=== PATIENT | female | born 1990 | race African-American/Black ===

== ENCOUNTER → 2019-12-18 16:31 | Outpatient (CLI) | payer OTHER, SELFPAY | PROVIDERS: Family Provider Obstetrics & Gynecology; PCP Obstetrics & Gynecology; Visit Provider Obstetrics & Gynecology | DX: N89.8 Other specified noninflammatory disorders of vagina (principal); R39.89 Other symptoms and signs involving the genitourinary system | CPT/HCPCS: 87480; 87510; 87660 ==

== ENCOUNTER → 2020-01-01 15:17 | Outpatient (CLI) | payer OTHER, SELFPAY ==
[2020-01-01 21:05] LABS: Urine N gonorrhoeae NOT DETECTED
[2020-01-01 21:13] LABS: Urine Chlamydia NOT DETECTED
== END ==
PROVIDERS: Family Provider Obstetrics & Gynecology; PCP Obstetrics & Gynecology; Visit Provider Obstetrics & Gynecology
DX: Z34.81 Encounter for supervision of other normal pregnancy, first trimester (principal); Z11.3 Encounter for screening for infections with a predominantly sexual mode of transmission; Z3A.11 11 weeks gestation of pregnancy
CPT/HCPCS: 87491; 87591

== ENCOUNTER → 2020-01-08 09:20 | Outpatient (CLI) | payer OTHER, SELFPAY ==
[2020-01-08 10:30] LABS: Add Manual Diff / Slide Review NO; Basophils Absolute Auto 0 /uL (0-100); Basophils Percent Auto 0.5 % (0-2); Eosinophils Absolute Auto 100 /uL (0-450); Eosinophils Percent Auto 0.9 % (2-4); Hematocrit 39.9 % (36-46); Hemoglobin 14.1 g/dL (12.0-16.0); Lymphocytes Absolute Auto 2100 /uL (1100-4500); Lymphocytes Percent Auto 28.8 % (25-40); Mean Corpuscular HGB Conc 35.5 % (30-36); Mean Corpuscular Hemoglobin 32.6 PG (26-34); Mean Corpuscular Volume 91.9 fL (80-100); Monocytes Absolute Auto 500 /uL (0-900); Monocytes Percent Auto 6.5 % (3-14); Neutrophils Absolute Auto 4700 /uL (1500-7000); Neutrophils Percent Auto 63.3 % (50-75); Platelet Count 217 X10^3/uL (150-400); Red Blood Cell Count 4.34 X10^6/uL (4.0-5.2); Red Cell Distribution Width 13.2 % (11.6-14.8); White Blood Cell Count 7.5 X10^3/uL (4.5-11.0)
[2020-01-08 13:02] LABS: Appearance Urine UA CLEAR; Bilirubin Urine UA NEGATIVE (NEGATIVE); Color Urine UA YELLOW; Glucose Urine UA NEGATIVE (Negative); Ketones Urine UA NEGATIVE (NEGATIVE); Leukocyte Esterase Urine UA NEGATIVE (NEGATIVE); Nitrite Urine UA NEGATIVE (Negative); Occult Blood Urine UA NEGATIVE (Negative); Protein Urine UA NEGATIVE (Negative); Urobilinogen Urine UA 0.2 E.U./dL (0.2)
[2020-01-08 15:42] LABS: Hepatitis B Surface Antigen NEGATIVE s/c (NEGATIVE)
[2020-01-08 15:51] LABS: HIV 1 & 2 Ab/Ag 4th Gen Combo NEGATIVE (NEGATIVE); Hep C Virus Ab w/Reflex Quant NEGATIVE s/c (NEGATIVE)
== END ==
PROVIDERS: Family Provider Obstetrics & Gynecology; PCP Obstetrics & Gynecology; Referring Provider Obstetrics & Gynecology; Visit Provider Obstetrics & Gynecology
DX: Z34.81 Encounter for supervision of other normal pregnancy, first trimester (principal)
CPT/HCPCS: 36415; 80055; 81003; 86787; 86803; 86850; 86900; 86901; 87086; 87389

== ENCOUNTER → 2020-02-26 09:37 | Outpatient (CLI) | payer OTHER, SELFPAY ==
--- NOTE | 2020-02-26 09:38 | DI.US.S_ITS ---
PROCEDURE: US OB >= 14 WEEKS FETUS INDICATIONS: ANATOMY OUTSIDE/PRIOR DATING DATA: Last menstrual period (LMP): Unknown. LMP-based estimated date of delivery (ALIVIA): Not applicable. First dating scan (date and location): 12/04/19. Estimated date of delivery (ALIVIA) from first dating scan: 07/16/20. TECHNIQUE: Real-time scanning was performed of the fetus, with image documentation and biometric measurements. Endovaginal scanning: Not performed [facility] >= 14 WEEKS FETUS, 12/04/2019, 10:21. FINDINGS: General: A single living intrauterine gestation is present. Presentation: Variable. Placenta: Placental position is anterior, without previa. Amniotic fluid index: 20 cm, normal range is 5-24 cm. heart rate: 158 beats per minute. Maternal cervical canal: 5.2 cm long. Normal lower limit is 2.5 cm. There is a 2.4 x 1.2 x 4.8 cm fluid collection noted posterior to the inferior aspect of placenta. biometrics: Biparietal diameter: 4.9 cm, correlating with 20 weeks and 5 days Head circumference: 18.7 cm, correlating with 21 weeks and 0 days Abdominal circumference: 15.7 cm, correlating with 20 weeks and 6 days Femur length: 3.4 cm, correlating with 20 weeks and 4 days Estimated gestational age from initial scan: not applicable. Composite gestational age from present scan: 20 weeks and 6 days Estimated weight and percentile: 377 g, correlating with the 91st percentile Measurement variability for biometric dating: +/- 7 days from 14 weeks to 15 weeks 6 days gestation, +/- 10 days from 16 weeks to 21 weeks 6 days gestation, +/- 2 weeks from 22 weeks to 27 weeks 6 days gestation, +/- 3 weeks for 28 weeks gestation or later. weight reference: 4500 g or EFW >90/95% is considered macrosomia or large for gestational age. EFW <10% is small for gestational age. EFW 5% or less is considered intra-uterine growth restriction. Anatomic survey: Neuro: Ventricles are non-dilated at less than 10 mm. Cisterna magna is normal at 3-11 mm. Cerebellum is normal in size and morphology. Nuchal skin fold: Normal at less than 6 mm between 14-21 weeks gestational age. Face: Nose and lips, facial profile are normal. Spine: No evidence for spina bifida. Heart: 4-chambered heart is present, with normal ventricular outflow tracts. Diaphragm: Diaphragm is intact. Stomach: Left-sided stomach is present. Kidneys: No hydronephrosis. Normal is less than 5 mm in 2nd trimester, less than 7 mm in 3rd trimester. Cord: 3-vessel cord has orthotopic insertion. Bladder: Normal in size. Extremities: All 4 extremities identified. IMPRESSION: 1. Single living intrauterine gestation with an estimated sonographic gestational age of approximately 20 weeks and 6 days. 2. Unremarkable second trimester anatomic screening survey. 3. There is a 2.4 x 1.2 x 4.8 cm fluid collection noted posterior to the inferior placenta possibly representing a subchorionic hemorrhage. Dictated by: Joe Garcia M.D. on 02/26/2020 at 12:15 Approved by: Joe Garcia M.D. on 02/26/2020 at 13:12
== END ==
PROVIDERS: Family Provider Obstetrics & Gynecology; PCP Obstetrics & Gynecology; Referring Provider Obstetrics & Gynecology; Visit Provider Obstetrics & Gynecology
DX: Z34.82 Encounter for supervision of other normal pregnancy, second trimester (principal); Z3A.20 20 weeks gestation of pregnancy
CPT/HCPCS: 76811

== ENCOUNTER → 2020-03-13 16:08 | Outpatient (CLI) | payer OTHER, SELFPAY ==
[2020-03-15 16:41] LABS: Candida species Positive (Negative); Gardnerella vaginalis Negative (Negative); Trichomoas vaginalis Negative (Negative)
== END ==
PROVIDERS: Family Provider Obstetrics & Gynecology; PCP Obstetrics & Gynecology; Visit Provider Obstetrics & Gynecology
DX: O26.899 Other specified pregnancy related conditions, unspecified trimester (principal); N89.8 Other specified noninflammatory disorders of vagina; O23.599 Infection of other part of genital tract in pregnancy, unspecified trimester; B96.89 Other specified bacterial agents as the cause of diseases classified elsewhere; Z3A.22 22 weeks gestation of pregnancy
CPT/HCPCS: 87480; 87510; 87660

== ENCOUNTER → 2020-04-08 12:22 | Outpatient (CLI) | payer OTHER, SELFPAY ==
[2020-04-08 13:25] LABS: Add Manual Diff / Slide Review NO; Basophils Absolute Auto 0 /uL (0-100); Basophils Percent Auto 0.2 % (0-2); Eosinophils Absolute Auto 100 /uL (0-450); Eosinophils Percent Auto 0.5 % (2-4); Hematocrit 38.6 % (36-46); Hemoglobin 13.4 g/dL (12.0-16.0); Lymphocytes Absolute Auto 2700 /uL (1100-4500); Lymphocytes Percent Auto 22.1 % (25-40); Mean Corpuscular HGB Conc 34.8 % (30-36); Mean Corpuscular Hemoglobin 32.5 PG (26-34); Mean Corpuscular Volume 93.3 fL (80-100); Monocytes Absolute Auto 800 /uL (0-900); Monocytes Percent Auto 6.6 % (3-14); Neutrophils Absolute Auto 8600 /uL (1500-7000); Neutrophils Percent Auto 70.6 % (50-75); Platelet Count 233 X10^3/uL (150-400); Red Blood Cell Count 4.14 X10^6/uL (4.0-5.2); Red Cell Distribution Width 13.1 % (11.6-14.8); White Blood Cell Count 12.2 X10^3/uL (4.5-11.0)
[2020-04-08 13:55] LABS: Aspartate Aminotransferase 23 IU/L (14-36); Blood Urea Nitrogen 4 mg/dL (7-17); Estimated Glomerular Filt Rate > 60.0 mL/min (>60); Uric Acid 2.8 mg/dL (2.5-6.2)
[2020-04-08 15:17] LABS: Creatinine Urine Random 39.2 mg/dL; Protein (Total) Urine Random 11 mg/dL (0-12); Protein Creatinine Ratio Urine 0.28 GRAM/24H
== END ==
PROVIDERS: Family Provider Obstetrics & Gynecology; PCP Obstetrics & Gynecology; Referring Provider Obstetrics & Gynecology; Visit Provider Obstetrics & Gynecology
DX: O16.9 Unspecified maternal hypertension, unspecified trimester (principal)
CPT/HCPCS: 36415; 82570; 84156; 84450; 84550; 85025

== ENCOUNTER → 2020-04-20 08:01 | Outpatient (CLI) | payer OTHER, SELFPAY ==
[2020-04-20 10:05] LABS: Hematocrit 37.1 % (36-46); Hemoglobin 13.2 g/dL (12.0-16.0)
[2020-04-20 10:28] LABS: GTT (PREG) 1 Hour PP 50gm Dose 166 mg/dL (76-139)
== END ==
PROVIDERS: Family Provider Obstetrics & Gynecology; PCP Obstetrics & Gynecology; Referring Provider Obstetrics & Gynecology; Visit Provider Obstetrics & Gynecology
DX: Z34.82 Encounter for supervision of other normal pregnancy, second trimester (principal); Z3A.24 24 weeks gestation of pregnancy
CPT/HCPCS: 36415; 82950; 85014; 85018

== ENCOUNTER → 2020-05-06 07:13 | Outpatient (CLI) | payer OTHER, SELFPAY ==
[2020-05-06 10:48] LABS: Glucose 1 Hour 190 mg/dL (70-170)
[2020-05-06 10:56] LABS: Glucose 2 Hour 173 mg/dL (70-140)
[2020-05-06 12:17] LABS: Glucose Tol Interpretation INTERPRETATION
[2020-05-06 12:30] LABS: Glucose 3 Hour 96 mg/dL (70-115)
== END ==
PROVIDERS: Family Provider Obstetrics & Gynecology; PCP Obstetrics & Gynecology; Referring Provider Obstetrics & Gynecology; Visit Provider Obstetrics & Gynecology
DX: O99.810 Abnormal glucose complicating pregnancy (principal); Z3A.29 29 weeks gestation of pregnancy
CPT/HCPCS: 82951; 82952

== ENCOUNTER → 2020-05-24 15:16 | Outpatient (CLI) | payer OTHER, SELFPAY ==
[2020-05-24 16:46] LABS: Add Manual Diff / Slide Review NO; Basophils Absolute Auto 0 /uL (0-100); Basophils Percent Auto 0.4 % (0-2); Eosinophils Absolute Auto 100 /uL (0-450); Eosinophils Percent Auto 0.5 % (2-4); Hematocrit 38.7 % (36-46); Hemoglobin 13.4 g/dL (12.0-16.0); Lymphocytes Absolute Auto 2700 /uL (1100-4500); Lymphocytes Percent Auto 23.2 % (25-40); Mean Corpuscular HGB Conc 34.6 % (30-36); Mean Corpuscular Volume 92.5 fL (80-100); Monocytes Absolute Auto 800 /uL (0-900); Monocytes Percent Auto 6.7 % (3-14); Neutrophils Absolute Auto 7900 /uL (1500-7000); Neutrophils Percent Auto 69.2 % (50-75); Platelet Count 213 X10^3/uL (150-400); Red Blood Cell Count 4.18 X10^6/uL (4.0-5.2); Red Cell Distribution Width 13.4 % (11.6-14.8); White Blood Cell Count 11.5 X10^3/uL (4.5-11.0)
[2020-05-24 17:20] LABS: Aspartate Aminotransferase 24 IU/L (14-36); BUN Creatinine Ratio 16.9 (6-22); Blood Urea Nitrogen 10 mg/dL (7-17); Estimated Glomerular Filt Rate > 60.0 mL/min (>60)
[2020-05-24 17:37] LABS: Creatinine Urine Random 244.1 mg/dL; Protein (Total) Urine Random 11 mg/dL (0-12); Protein Creatinine Ratio Urine 0.04 GRAM/24H
== END ==
PROVIDERS: Family Provider Obstetrics & Gynecology; PCP Obstetrics & Gynecology; Referring Provider Obstetrics & Gynecology; Visit Provider Obstetrics & Gynecology
DX: O16.9 Unspecified maternal hypertension, unspecified trimester (principal)
CPT/HCPCS: 36415; 82570; 84156; 84450; 84550; 85025

== ENCOUNTER → 2020-06-03 12:03 | Outpatient (CLI) | payer OTHER, SELFPAY ==
--- NOTE | 2020-06-03 12:04 | DI.US.S_ITS ---
PROCEDURE: US OB >= 14 WEEKS FETUS INDICATIONS: GROWTH FOR DIABETES OUTSIDE/PRIOR DATING DATA: Last menstrual period (LMP): Unknown. LMP-based estimated date of delivery (ALIVIA): Unknown . First dating scan (date and location): 12/04/19 . Estimated date of delivery (ALIVIA) from first dating scan: 07/16/20 . TECHNIQUE: Real-time scanning was performed of the fetus, with image documentation and biometric measurements. Endovaginal scanning: Not performed COMPARISON: [facility], , OB >= 14 WEEKS FETUS, 04/22/2020, 14:57. FINDINGS: General: A single living intrauterine gestation is present. Presentation: Vertex. Placenta: Placental position is anterior , without previa. Amniotic fluid index: 11.0 cm, normal range is 5-24 cm. heart rate: 158 beats per minute. Maternal cervical canal: 6.0 cm long. Normal lower limit is 2.5 cm. biometrics: Biparietal diameter: 9.2 cm, 37 weeks 3 days Head circumference: 33.2 cm, 37 weeks 6 days Abdominal circumference: 30.9 cm, 34 weeks 6 days Femur length: 6.9 cm, 35 weeks 5 days Estimated gestational age from initial scan: 33 weeks, 6 days. Composite gestational age from present scan: 36 weeks, 3 days Estimated weight and percentile: 90th percentile, 405 g Measurement variability for biometric dating: +/- 7 days from 14 weeks to 15 weeks 6 days gestation, +/- 10 days from 16 weeks to 21 weeks 6 days gestation, +/- 2 weeks from 22 weeks to 27 weeks 6 days gestation, +/- 3 weeks for 28 weeks gestation or later. weight reference: 4500 g or EFW >90/95% is considered macrosomia or large for gestational age. EFW <10% is small for gestational age. EFW 5% or less is considered intra-uterine growth restriction. Anatomic survey: Neuro: Ventricles are non-dilated at less than 10 mm. Cisterna magna is normal at 3-11 mm. Cerebellum is normal in size and morphology. Nuchal skin fold: Normal at less than 6 mm between 14-21 weeks gestational age. Face: Nose and lips, facial profile are normal. Spine: No evidence for spina bifida. Heart: 4-chambered heart is present, with normal ventricular outflow tracts. Diaphragm: Diaphragm is intact. Stomach: Left-sided stomach is present. Kidneys: No hydronephrosis. Normal is less than 5 mm in 2nd trimester, less than 7 mm in 3rd trimester. Cord: 3-vessel cord has orthotopic insertion. Bladder: Normal in size. Extremities: All 4 extremities identified. IMPRESSION: Single living intrauterine fetus in vertex presentation demonstrating borderline greater than expected growth at the 90th percentile. If there is clinical suspicion of early macrosomia, repeat ultrasound in 3 weeks could be performed. Normal anatomic survey Dictated by: Guero Ruvalcaba M.D. on 06/03/2020 at 14:48 Approved by: Guero Ruvalcaba M.D. on 06/03/2020 at 14:53
== END ==
PROVIDERS: Family Provider Obstetrics & Gynecology; PCP Obstetrics & Gynecology; Referring Provider Obstetrics & Gynecology; Visit Provider Obstetrics & Gynecology
DX: Z36.89 Encounter for other specified antenatal screening (principal); Z3A.36 36 weeks gestation of pregnancy
CPT/HCPCS: 76811

== ENCOUNTER 2020-06-03 14:15 | Outpatient (CLI) | payer OTHER, SELFPAY ==
[2020-06-03 14:59] LABS: Add Manual Diff / Slide Review NO; Basophils Absolute Auto 0 /uL (0-100); Basophils Percent Auto 0.4 % (0-2); Eosinophils Absolute Auto 100 /uL (0-450); Eosinophils Percent Auto 0.5 % (2-4); Hemoglobin 12.7 g/dL (12.0-16.0); Lymphocytes Absolute Auto 2200 /uL (1100-4500); Lymphocytes Percent Auto 20.2 % (25-40); Mean Corpuscular HGB Conc 34.4 % (30-36); Mean Corpuscular Hemoglobin 31.9 PG (26-34); Mean Corpuscular Volume 92.6 fL (80-100); Monocytes Absolute Auto 700 /uL (0-900); Monocytes Percent Auto 6.1 % (3-14); Neutrophils Absolute Auto 8100 /uL (1500-7000); Neutrophils Percent Auto 72.8 % (50-75); Platelet Count 186 X10^3/uL (150-400); Red Blood Cell Count 3.99 X10^6/uL (4.0-5.2); Red Cell Distribution Width 13.4 % (11.6-14.8); White Blood Cell Count 11.1 X10^3/uL (4.5-11.0)
--- NOTE | 2020-06-03 15:07 | PM.OBTRLD ---
Visit Information Visit Information Date of evaluation: 06/03/20 Primary OB Provider: Yocasta Sewell Reason for Evaluation: Yes non-stress test Comments/Additional reasons for admission: This patient is a 29yo P1 with GDMA2 on metformin and a history of PIH in a prior now on ASA81, presenting for an NST to initiate biweekly testing and for PIH labs with new onset headache, nausea, and vomiting. Patient denies obstetrical complaints, is normotensive at home, did start symptoms shortly after starting metformin. Vital Signs Vital Signs: 103-114/62-69, HR 80s PFSH Medical History (Updated 05/13/20 @ 15:43 by Josephine Doty) Ankle fracture, left (Acute) Hx of being hospitalized (Acute ~2012) Scoliosis (Chronic) Surgical History History of third molar tooth extraction (~2011) Family History Mother Diabetes mellitus Myocardial infarction Altered renal tissue perfusion Hypertension Grandfather No problems noted. Grandmother Breast cancer in female Family/Other Breast cancer in female Father PTSD (post-traumatic stress disorder) History of renal dialysis Grandfather No problems noted. Grandmother Breast cancer in female Sister Depression PTSD (post-traumatic stress disorder) Social History marital status: household members: spouse and children (2) pets and animals: Yes (dogs X 2) education level: college ([employer]) occupational status: employed current occupational exposures/hazards: No special henrietta needs: No Smoking Status: Never smoker Objective Labs Result Diagrams: 06/03/20 14:52 06/03/20 14:52 Labs: Laboratory Results - last 24 hr 06/03/20 14:52 WBC 11.1 H RBC 3.99 L Hgb 12.7 Hct 37.0 MCV 92.6 MCH 31.9 MCHC 34.4 RDW 13.4 Plt Count 186 Neut % (Auto) 72.8 Lymph % (Auto) 20.2 L Mcdonald % (Auto) 6.1 Eos % (Auto) 0.5 L Baso % (Auto) 0.4 Neut # (Auto) 8100 H Lymph # (Auto) 2200 Mcdonald # (Auto) 700 Eos # (Auto) 100 Baso # (Auto) 0 Evaluation Evaluation Baseline heart rate: 150 Variability: Average (6-10) monitor accelerations: Present monitor decelerations: Absent Category of Tracing: I Laboratory results: Laboratory Tests 06/03/20 14:52 WBC 11.1 H RBC 3.99 L Hgb 12.7 Hct 37.0 MCV 92.6 MCH 31.9 MCHC 34.4 RDW 13.4 Plt Count 186 Neut % (Auto) 72.8 Lymph % (Auto) 20.2 L Mcdonald % (Auto) 6.1 Eos % (Auto) 0.5 L Baso % (Auto) 0.4 Neut # (Auto) 8100 H Lymph # (Auto) 2200 Mcdonald # (Auto) 700 Eos # (Auto) 100 Baso # (Auto) 0 Diagnosis, Plan/Disposition Plan/Disposition Plan: Home with routine precautions, increase metformin dose as per clinic note. OB Disposition: home
[2020-06-03 15:22] LABS: Aspartate Aminotransferase 21 IU/L (14-36); BUN Creatinine Ratio 15.4 (6-22); Blood Urea Nitrogen 8 mg/dL (7-17); Estimated Glomerular Filt Rate > 60.0 mL/min (>60); Uric Acid 2.7 mg/dL (2.5-6.2)
== END 2020-06-03 15:40 | disposition home or self-care (01) ==
LOC: LABOR 15:40 → OB 06-04 11:18
PROVIDERS: Family Provider Obstetrics & Gynecology; PCP Obstetrics & Gynecology; Referring Provider Obstetrics & Gynecology; Visit Provider Obstetrics & Gynecology
DX: O24.415 Gestational diabetes mellitus in pregnancy, controlled by oral hypoglycemic drugs (principal); R51 Headache; R11.2 Nausea with vomiting, unspecified; Z3A.33 33 weeks gestation of pregnancy
CPT/HCPCS: 36415; 59025; 84450; 84550; 85025; G0378; G0379

== ENCOUNTER → 2020-06-03 14:26 | Outpatient (CLI) | payer OTHER, SELFPAY ==
[2020-06-03 20:51] LABS: Creatinine Urine Random 48.3 mg/dL; Protein (Total) Urine Random 10 mg/dL (0-12)
== END ==
PROVIDERS: Family Provider Obstetrics & Gynecology; PCP Obstetrics & Gynecology; Visit Provider Obstetrics & Gynecology
DX: O16.9 Unspecified maternal hypertension, unspecified trimester (principal); O24.419 Gestational diabetes mellitus in pregnancy, unspecified control; Z3A.33 33 weeks gestation of pregnancy
CPT/HCPCS: 82570; 84156

== ENCOUNTER → 2020-06-10 14:06 | Outpatient (CLI) | payer OTHER, SELFPAY ==
[2020-06-11 07:10] LABS: Candida species Negative (Negative); Gardnerella vaginalis Negative (Negative); Trichomoas vaginalis Negative (Negative)
[2020-06-11 14:44] LABS: Strep Grp B PCR NEG for Grp B Strep
== END ==
PROVIDERS: Family Provider Obstetrics & Gynecology; PCP Obstetrics & Gynecology; Visit Provider Obstetrics & Gynecology
DX: O26.893 Other specified pregnancy related conditions, third trimester (principal); N89.8 Other specified noninflammatory disorders of vagina; Z3A.35 35 weeks gestation of pregnancy
CPT/HCPCS: 87480; 87510; 87653; 87660

== ENCOUNTER 2020-06-10 14:17 | Outpatient (CLI) | payer OTHER, SELFPAY ==
--- NOTE | 2020-06-10 15:00 | P.TNLD_ITS ---
Visit Information Visit Information Date of evaluation: 06/10/20 Primary OB Provider: Yocasta Sewell Reason for Evaluation: Yes non-stress test Comments/Additional reasons for admission: This patient is a 29yo P2 with poorly controlled GDMA2 at 34 weeks, presenting for scheduled NST. Vital Signs Vital Signs: 108/69, hr 86 PFSH Medical History Ankle fracture, left (Acute) Hx of being hospitalized (Acute ~2012) Scoliosis (Chronic) Surgical History History of third molar tooth extraction (~2011) Family History Mother Diabetes mellitus Myocardial infarction Altered renal tissue perfusion Hypertension Grandfather No problems noted. Grandmother Breast cancer in female Family/Other Breast cancer in female Father PTSD (post-traumatic stress disorder) History of renal dialysis Grandfather No problems noted. Grandmother Breast cancer in female Sister Depression PTSD (post-traumatic stress disorder) Social History marital status: household members: spouse and children (2) pets and animals: Yes (dogs X 2) education level: college ([employer]) occupational status: employed current occupational exposures/hazards: No special henrietta needs: No Smoking Status: Never smoker Review of Systems Constitutional Constitutional: Reports system reviewed and no additional complaints, except as documented Exam Const General: cooperative, healthy appearing, comfortable and other (Appears tired) Evaluation Evaluation Baseline heart rate: 140 Variability: Moderate (11-25) monitor accelerations: Present monitor decelerations: Absent Cervical dilation (cm): 0 Cervical effacement (%): 0 station: -4 Comments: Cervix long, closed, high, posterior, multiparous. Diagnosis, Plan/Disposition Plan/Disposition Plan: Home with routine precautions. OB Disposition: home
== END 2020-06-10 15:05 | disposition home or self-care (01) ==
LOC: LABOR 15:05 → OB 06-11 12:22
PROVIDERS: Family Provider Obstetrics & Gynecology; PCP Obstetrics & Gynecology; Referring Provider Obstetrics & Gynecology; Visit Provider Obstetrics & Gynecology
DX: O47.03 False labor before 37 completed weeks of gestation, third trimester (principal); O24.419 Gestational diabetes mellitus in pregnancy, unspecified control; Z3A.34 34 weeks gestation of pregnancy; O26.893 Other specified pregnancy related conditions, third trimester; N89.8 Other specified noninflammatory disorders of vagina
CPT/HCPCS: 59025; 87480; 87510; 87653; 87660; G0378; G0379

== ENCOUNTER 2020-06-13 09:02 | Outpatient (CLI) | payer OTHER, SELFPAY ==
--- NOTE | 2020-06-13 09:41 | PM.OBTRLD ---
Visit Information Visit Information Date of evaluation: 06/13/20 Primary OB Provider: Yocasta Sewell Reason for Evaluation: Yes non-stress test Comments/Additional reasons for admission: This patient is a 29yo P2 with poorly controlled GDMA2 on metformin at 34 weeks, presenting for scheduled NST. Vital Signs Vital Signs: 117/70, HR 78 PFSH Medical History Ankle fracture, left (Acute) Hx of being hospitalized (Acute ~2012) Scoliosis (Chronic) Surgical History History of third molar tooth extraction (~2011) Family History Mother Diabetes mellitus Myocardial infarction Altered renal tissue perfusion Hypertension Grandfather No problems noted. Grandmother Breast cancer in female Family/Other Breast cancer in female Father PTSD (post-traumatic stress disorder) History of renal dialysis Grandfather No problems noted. Grandmother Breast cancer in female Sister Depression PTSD (post-traumatic stress disorder) Social History marital status: household members: spouse and children (2) pets and animals: Yes (dogs X 2) education level: college ([employer]) occupational status: employed current occupational exposures/hazards: No special henrietta needs: No Smoking Status: Never smoker Review of Systems Constitutional Constitutional: Reports system reviewed and no additional complaints, except as documented Comments: Patient felt well per nursing staff Evaluation Evaluation Baseline heart rate: 145 Variability: Moderate (11-25) monitor accelerations: Present monitor decelerations: Absent Category of Tracing: Reactive (cat 1) Diagnosis, Plan/Disposition Plan/Disposition Plan: Home with scheduled follow up. OB Disposition: home
== END 2020-06-13 09:45 | disposition home or self-care (01) ==
LOC: LABOR 09:11 → OB 06-14 08:06
PROVIDERS: Family Provider Obstetrics & Gynecology; PCP Obstetrics & Gynecology; Referring Provider Obstetrics & Gynecology; Visit Provider Obstetrics & Gynecology
DX: O24.415 Gestational diabetes mellitus in pregnancy, controlled by oral hypoglycemic drugs (principal); Z3A.34 34 weeks gestation of pregnancy
CPT/HCPCS: 59025; G0378; G0379

== ENCOUNTER 2020-06-17 08:15 | Outpatient (CLI) | payer OTHER, SELFPAY ==
--- NOTE | 2020-06-17 08:49 | PM.OBTRLD ---
Visit Information Visit Information Date of evaluation: 06/17/20 Primary OB Provider: Yocasta Sewell Reason for Evaluation: Yes non-stress test Comments/Additional reasons for admission: This patient is a 29yo @35+6 with GDMA2 on metformin presenting for routine testing. Vital Signs Vital Signs: 121/74, HR 91 PFSH Medical History Ankle fracture, left (Acute) Hx of being hospitalized (Acute ~2012) Scoliosis (Chronic) Surgical History History of third molar tooth extraction (~2011) Family History Mother Diabetes mellitus Myocardial infarction Altered renal tissue perfusion Hypertension Grandfather No problems noted. Grandmother Breast cancer in female Family/Other Breast cancer in female Father PTSD (post-traumatic stress disorder) History of renal dialysis Grandfather No problems noted. Grandmother Breast cancer in female Sister Depression PTSD (post-traumatic stress disorder) Social History marital status: household members: spouse and children (2) pets and animals: Yes (dogs X 2) education level: college ([employer]) occupational status: employed current occupational exposures/hazards: No special henrietta needs: No Smoking Status: Never smoker Evaluation Evaluation Baseline heart rate: 150 Variability: Average (6-10) monitor accelerations: Present monitor decelerations: Absent Category of Tracing: Reactive Diagnosis, Plan/Disposition Plan/Disposition Plan: To clinic appointment for fluid check as previously scheduled. OB Disposition: home
== END 2020-06-17 08:56 | disposition home or self-care (01) ==
LOC: LABOR 08:48 → OB 06-19 12:12
PROVIDERS: Family Provider Obstetrics & Gynecology; PCP Obstetrics & Gynecology; Referring Provider Obstetrics & Gynecology; Visit Provider Obstetrics & Gynecology
DX: O24.415 Gestational diabetes mellitus in pregnancy, controlled by oral hypoglycemic drugs (principal); Z3A.35 35 weeks gestation of pregnancy
CPT/HCPCS: 59025; G0378; G0379

== ENCOUNTER 2020-06-20 09:00 | Outpatient (CLI) | payer OTHER, SELFPAY ==
--- NOTE | 2020-06-20 09:30 | P.TNLD_ITS ---
Visit Information Visit Information Date of evaluation: 06/20/20 Primary OB Provider: Yocasta Sewell On-call OB Provider: Tami Lambert Reason for Evaluation: Yes non-stress test non-stress test reason: diabetes PFSH Medical History Ankle fracture, left (Acute) Hx of being hospitalized (Acute ~2012) Scoliosis (Chronic) Surgical History History of third molar tooth extraction (~2011) Family History Mother Diabetes mellitus Myocardial infarction Altered renal tissue perfusion Hypertension Grandfather No problems noted. Grandmother Breast cancer in female Family/Other Breast cancer in female Father PTSD (post-traumatic stress disorder) History of renal dialysis Grandfather No problems noted. Grandmother Breast cancer in female Sister Depression PTSD (post-traumatic stress disorder) Social History marital status: household members: spouse and children (2) pets and animals: Yes (dogs X 2) education level: college ([employer]) occupational status: employed current occupational exposures/hazards: No special henrietta needs: No Smoking Status: Never smoker Evaluation Evaluation Baseline heart rate: 150 Variability: Moderate (11-25) monitor accelerations: Present monitor decelerations: Absent Contraction Frequency (minutes): 0 Diagnosis, Plan/Disposition Final Diagnosis (1) GDM (gestational diabetes mellitus): Status: Acute (2) Hypertension affecting : Status: Acute Plan/Disposition Plan: Reactive nonstress test. Follow-up routine OB appointment OB Disposition: home
== END 2020-06-20 10:00 | disposition home or self-care (01) ==
LOC: LABOR 14:18 → OB 06-24 16:31
PROVIDERS: Family Provider Obstetrics & Gynecology; PCP Obstetrics & Gynecology; Referring Provider Obstetrics & Gynecology; Visit Provider Obstetrics & Gynecology
DX: O24.419 Gestational diabetes mellitus in pregnancy, unspecified control (principal); O16.9 Unspecified maternal hypertension, unspecified trimester
CPT/HCPCS: 59025; G0378; G0379

== ENCOUNTER 2020-06-24 14:49 | Outpatient (CLI) | payer OTHER, SELFPAY ==
[2020-06-24 15:26] LABS: Add Manual Diff / Slide Review NO; Basophils Absolute Auto 100 /uL (0-100); Basophils Percent Auto 0.6 % (0-2); Eosinophils Absolute Auto 100 /uL (0-450); Eosinophils Percent Auto 0.6 % (2-4); Hematocrit 36.7 % (36-46); Hemoglobin 13.2 g/dL (12.0-16.0); Lymphocytes Absolute Auto 2400 /uL (1100-4500); Lymphocytes Percent Auto 23.3 % (25-40); Mean Corpuscular HGB Conc 35.9 % (30-36); Mean Corpuscular Hemoglobin 32.8 PG (26-34); Mean Corpuscular Volume 91.4 fL (80-100); Monocytes Absolute Auto 800 /uL (0-900); Monocytes Percent Auto 7.7 % (3-14); Neutrophils Absolute Auto 7000 /uL (1500-7000); Neutrophils Percent Auto 67.8 % (50-75); Platelet Count 186 X10^3/uL (150-400); Red Blood Cell Count 4.02 X10^6/uL (4.0-5.2); Red Cell Distribution Width 13.2 % (11.6-14.8); White Blood Cell Count 10.4 X10^3/uL (4.5-11.0)
[2020-06-24] MEDS: METOCLOPRAMIDE HCL 10 MG TABLET PO (15:36)
--- NOTE | 2020-06-24 15:37 | PM.OBTRLD ---
Visit Information Visit Information Date of evaluation: 06/24/20 Primary OB Provider: Yocasta Sewell Reason for Evaluation: Yes non-stress test Comments/Additional reasons for admission: Patient with GDMA2 on insulin and metformin, sent for NST as part of biweekly testing. Vital Signs Vital Signs: 126/75 [facility] Medical History Ankle fracture, left (Acute) Hx of being hospitalized (Acute ~2012) Scoliosis (Chronic) Surgical History History of third molar tooth extraction (~2011) Family History Mother Diabetes mellitus Myocardial infarction Altered renal tissue perfusion Hypertension Grandfather No problems noted. Grandmother Breast cancer in female Family/Other Breast cancer in female Father PTSD (post-traumatic stress disorder) History of renal dialysis Grandfather No problems noted. Grandmother Breast cancer in female Sister Depression PTSD (post-traumatic stress disorder) Social History marital status: household members: spouse and children (2) pets and animals: Yes (dogs X 2) education level: college ([employer]) occupational status: employed current occupational exposures/hazards: No special henrietta needs: No Smoking Status: Never smoker Objective Labs Result Diagrams: 06/24/20 15:15 06/24/20 15:15 Labs: Laboratory Results - last 24 hr 06/24/20 15:15 WBC 10.4 RBC 4.02 Hgb 13.2 Hct 36.7 MCV 91.4 MCH 32.8 MCHC 35.9 RDW 13.2 Plt Count 186 Neut % (Auto) 67.8 Lymph % (Auto) 23.3 L Cole % (Auto) 7.7 Eos % (Auto) 0.6 L Baso % (Auto) 0.6 Neut # (Auto) 7000 Lymph # (Auto) 2400 Cole # (Auto) 800 Eos # (Auto) 100 Baso # (Auto) 100 Evaluation Evaluation Baseline heart rate: 130 Variability: Moderate (11-25) monitor accelerations: Present monitor decelerations: Absent Contraction Frequency (minutes): 3 Category of Tracing: Reactive Laboratory results: Laboratory Tests 06/24/20 15:15 WBC 10.4 RBC 4.02 Hgb 13.2 Hct 36.7 MCV 91.4 MCH 32.8 MCHC 35.9 RDW 13.2 Plt Count 186 Neut % (Auto) 67.8 Lymph % (Auto) 23.3 L Cole % (Auto) 7.7 Eos % (Auto) 0.6 L Baso % (Auto) 0.6 Neut # (Auto) 7000 Lymph # (Auto) 2400 Cole # (Auto) 800 Eos # (Auto) 100 Baso # (Auto) 100 Diagnosis, Plan/Disposition Plan/Disposition Plan: Home with scheduled follow up and routine precautions. OB Disposition: home
[2020-06-24 15:38] LABS: Aspartate Aminotransferase 21 IU/L (14-36); BUN Creatinine Ratio 13.7 (6-22); Blood Urea Nitrogen 7 mg/dL (7-17); Estimated Glomerular Filt Rate > 60.0 mL/min (>60); Uric Acid 3.1 mg/dL (2.5-6.2)
[2020-06-24 16:24] LABS: Creatinine Urine Random 43.2 mg/dL; Protein (Total) Urine Random 11 mg/dL (0-12); Protein Creatinine Ratio Urine 0.25 GRAM/24H
== END 2020-06-24 16:30 | disposition home or self-care (01) ==
LOC: LABOR 17:13 → OB 06-27 10:26
PROVIDERS: Family Provider Obstetrics & Gynecology; PCP Obstetrics & Gynecology; Referring Provider Obstetrics & Gynecology; Visit Provider Obstetrics & Gynecology
DX: O26.893 Other specified pregnancy related conditions, third trimester (principal); R51 Headache; Z3A.36 36 weeks gestation of pregnancy
CPT/HCPCS: 36415; 59025; 82570; 84156; 84450; 84550; 85025; G0378; G0379

== ENCOUNTER 2020-06-27 08:58 | Outpatient (CLI) | payer OTHER, SELFPAY ==
--- NOTE | 2020-06-28 16:54 | PM.OBTRLD ---
Visit Information Visit Information Date of evaluation: 06/28/20 Primary OB Provider: Yocasta Sewell Reason for Evaluation: Yes non-stress test Comments/Additional reasons for admission: Patient with GDMA2 on metformin 1000mg qHS and insulin, 4uNPH qHS, presenting at 37 weeks for scheduled testing. Vital Signs Vital Signs: 119/72, HR 83 PFSH Medical History Ankle fracture, left (Acute) Hx of being hospitalized (Acute ~2012) Scoliosis (Chronic) Surgical History History of third molar tooth extraction (~2011) Family History Mother Diabetes mellitus Myocardial infarction Altered renal tissue perfusion Hypertension Grandfather No problems noted. Grandmother Breast cancer in female Family/Other Breast cancer in female Father PTSD (post-traumatic stress disorder) History of renal dialysis Grandfather No problems noted. Grandmother Breast cancer in female Sister Depression PTSD (post-traumatic stress disorder) Social History marital status: household members: spouse and children (2) pets and animals: Yes (dogs X 2) education level: college ([employer]) occupational status: employed current occupational exposures/hazards: No special henrietta needs: No Smoking Status: Never smoker Review of Systems Constitutional Constitutional: Reports system reviewed and no additional complaints, except as documented Evaluation Evaluation Baseline heart rate: 130 Variability: Moderate (11-25) monitor accelerations: Present monitor decelerations: Absent Category of Tracing: Reactive Diagnosis, Plan/Disposition Plan/Disposition Plan: Home with scheduled follow up. OB Disposition: home
== END 2020-06-27 09:42 | disposition home or self-care (01) ==
LOC: OB 06-28 12:18
PROVIDERS: Family Provider Obstetrics & Gynecology; PCP Obstetrics & Gynecology; Referring Provider Obstetrics & Gynecology; Visit Provider Obstetrics & Gynecology
DX: O24.415 Gestational diabetes mellitus in pregnancy, controlled by oral hypoglycemic drugs (principal); Z3A.37 37 weeks gestation of pregnancy
CPT/HCPCS: 59025; G0378; G0379

== ENCOUNTER 2020-06-28 17:42 | Outpatient (CLI) | payer OTHER, SELFPAY ==
--- NOTE | 2020-06-28 17:50 | P.TNLD_ITS ---
Visit Information Visit Information Date of evaluation: 06/28/20 Primary OB Provider: Yocasta Sewell On-call OB Provider: Leslie Christine Reason for Evaluation: Yes non-stress test non-stress test reason: decreased movement Comments/Additional reasons for admission: Pt reports feeling decreased movement all day, however on the way to the hospital started to feel her baby move again. [facility] Medical History (Updated 06/29/20 @ 09:44 by Leslie Christine MD) Ankle fracture, left (Acute) Hx of being hospitalized (Acute ~2012) Scoliosis (Chronic) Surgical History History of third molar tooth extraction (~2011) Family History Mother Diabetes mellitus Myocardial infarction Altered renal tissue perfusion Hypertension Grandfather No problems noted. Grandmother Breast cancer in female Family/Other Breast cancer in female Father PTSD (post-traumatic stress disorder) History of renal dialysis Grandfather No problems noted. Grandmother Breast cancer in female Sister Depression PTSD (post-traumatic stress disorder) Social History marital status: household members: spouse and children (2) pets and animals: Yes (dogs X 2) education level: college ([employer]) occupational status: employed current occupational exposures/hazards: No special henrietta needs: No Smoking Status: Never smoker Evaluation Evaluation Baseline heart rate: 130 Variability: Moderate (11-25) monitor accelerations: Present monitor decelerations: Absent Diagnosis, Plan/Disposition Final Diagnosis (1) Decreased movement: Status: Acute Plan/Disposition Plan: 29yo at 37w3d here with decreased movement. Reactive NST. Stable for d/c home. OB Disposition: home
== END 2020-06-28 18:40 | disposition home or self-care (01) ==
LOC: LABOR 18:03 → OB 07-01 12:28
PROVIDERS: Family Provider Obstetrics & Gynecology; PCP Obstetrics & Gynecology; Referring Provider Obstetrics & Gynecology; Visit Provider Obstetrics & Gynecology
DX: O36.8130 Decreased fetal movements, third trimester, not applicable or unspecified (principal); Z3A.37 37 weeks gestation of pregnancy
CPT/HCPCS: 59025; G0378; G0379

== ENCOUNTER 2020-07-01 14:03 | Outpatient (CLI) | payer OTHER, SELFPAY ==
--- NOTE | 2020-07-01 17:42 | PM.OBTRLD ---
Visit Information Visit Information Date of evaluation: 07/01/20 Primary OB Provider: Yocasta Sewell Reason for Evaluation: Yes non-stress test Comments/Additional reasons for admission: Patient is a 29-year-old 002 at 37 and 6 with poorly controlled GDM a 2 on metformin and insulin, presenting for biweekly testing with no obstetrical complaints. Vital Signs Vital Signs: 136/76 [facility] Medical History Ankle fracture, left (Acute) Hx of being hospitalized (Acute ~2012) Scoliosis (Chronic) Surgical History History of third molar tooth extraction (~2011) Family History Mother Diabetes mellitus Myocardial infarction Altered renal tissue perfusion Hypertension Grandfather No problems noted. Grandmother Breast cancer in female Family/Other Breast cancer in female Father PTSD (post-traumatic stress disorder) History of renal dialysis Grandfather No problems noted. Grandmother Breast cancer in female Sister Depression PTSD (post-traumatic stress disorder) Social History marital status: household members: spouse and children (2) pets and animals: Yes (dogs X 2) education level: college ([employer]) occupational status: employed current occupational exposures/hazards: No special henrietta needs: No Smoking Status: Never smoker Evaluation Evaluation Baseline heart rate: 145 Variability: Moderate (11-25) monitor accelerations: Present monitor decelerations: Absent Category of Tracing: Reactive Diagnosis, Plan/Disposition Plan/Disposition Plan: To clinic visit for BPP. OB Disposition: home
== END 2020-07-01 14:42 | disposition home or self-care (01) ==
LOC: LABOR 14:15 → OB 07-02 09:28
PROVIDERS: Family Provider Obstetrics & Gynecology; PCP Obstetrics & Gynecology; Referring Provider Obstetrics & Gynecology; Visit Provider Obstetrics & Gynecology
DX: O24.414 Gestational diabetes mellitus in pregnancy, insulin controlled (principal); Z3A.37 37 weeks gestation of pregnancy
CPT/HCPCS: 59025; G0378; G0379

== ENCOUNTER 2020-07-04 09:20 | Outpatient (CLI) | payer OTHER, SELFPAY ==
--- NOTE | 2020-07-04 10:19 | P.TNLD_ITS ---
Visit Information Visit Information Date of evaluation: 07/04/20 Primary OB Provider: Yocasta Sewell On-call OB Provider: Tami Lambert Reason for Evaluation: Yes non-stress test non-stress test reason: diabetes Vital Signs Vital Signs: Blood pressure 121/75, pulse of 90 PFSH Medical History Ankle fracture, left (Acute) Hx of being hospitalized (Acute ~2012) Scoliosis (Chronic) Surgical History History of third molar tooth extraction (~2011) Family History Mother Diabetes mellitus Myocardial infarction Altered renal tissue perfusion Hypertension Grandfather No problems noted. Grandmother Breast cancer in female Family/Other Breast cancer in female Father PTSD (post-traumatic stress disorder) History of renal dialysis Grandfather No problems noted. Grandmother Breast cancer in female Sister Depression PTSD (post-traumatic stress disorder) Social History marital status: household members: spouse and children (2) pets and animals: Yes (dogs X 2) education level: college ([employer]) occupational status: employed current occupational exposures/hazards: No special henrietta needs: No Smoking Status: Never smoker Evaluation Evaluation Baseline heart rate: 140 Variability: Moderate (11-25) monitor accelerations: Present monitor decelerations: Absent Contraction Frequency (minutes): 15 Uterine Contraction Intensity: Mild Category of Tracing: Reactive Diagnosis, Plan/Disposition Final Diagnosis (1) GDM (gestational diabetes mellitus): Status: Acute Plan/Disposition Plan: Patient is discharged home to follow up at her scheduled OB appointment OB Disposition: home
== END 2020-07-04 10:25 | disposition home or self-care (01) ==
LOC: LABOR 10:24 → OB 07-09 11:44
PROVIDERS: Family Provider Obstetrics & Gynecology; PCP Obstetrics & Gynecology; Referring Provider Obstetrics & Gynecology; Visit Provider Obstetrics & Gynecology
DX: O24.419 Gestational diabetes mellitus in pregnancy, unspecified control (principal); Z3A.38 38 weeks gestation of pregnancy
CPT/HCPCS: 59025; G0378; G0379

== ENCOUNTER → 2020-07-08 09:39 | Outpatient (CLI) | payer OTHER, SELFPAY ==
[2020-07-09 18:06] LABS: COVID19 Sendout Not Detected (Not Detect)
== END ==
PROVIDERS: Family Provider Obstetrics & Gynecology; PCP Obstetrics & Gynecology; Visit Provider Nurse Practitioner
DX: Z11.59 Encounter for screening for other viral diseases (principal)
CPT/HCPCS: 87635

== ENCOUNTER 2020-07-09 11:04 | Outpatient (CLI) | payer OTHER, SELFPAY ==
--- NOTE | 2020-07-09 18:21 | PM.OBTRLD ---
Visit Information Visit Information Date of evaluation: 07/09/20 Primary OB Provider: Yocasta Sewell Reason for Evaluation: Yes non-stress test Comments/Additional reasons for admission: This patient is admitted for GDMA2 on insulin and metformin, for scheduled NST as part of biweekly testing. Vital Signs Vital Signs: 125/75, HR 85 PFSH Medical History Ankle fracture, left (Acute) Hx of being hospitalized (Acute ~2012) Scoliosis (Chronic) Surgical History History of third molar tooth extraction (~2011) Family History Mother Diabetes mellitus Myocardial infarction Altered renal tissue perfusion Hypertension Grandfather No problems noted. Grandmother Breast cancer in female Family/Other Breast cancer in female Father PTSD (post-traumatic stress disorder) History of renal dialysis Grandfather No problems noted. Grandmother Breast cancer in female Sister Depression PTSD (post-traumatic stress disorder) Social History marital status: household members: spouse and children (2) pets and animals: Yes (dogs X 2) education level: college ([employer]) occupational status: employed current occupational exposures/hazards: No special henrietta needs: No Smoking Status: Never smoker Review of Systems Constitutional Constitutional: Reports system reviewed and no additional complaints, except as documented Evaluation Evaluation Baseline heart rate: 135 Variability: Moderate (11-25) monitor accelerations: Present monitor decelerations: Absent Diagnosis, Plan/Disposition Plan/Disposition Plan: Home with plan for cervical ripening tomorrow night and induction the next AM. OB Disposition: home
== END 2020-07-09 11:30 | disposition home or self-care (01) ==
LOC: OB 07-10 11:50
PROVIDERS: Family Provider Obstetrics & Gynecology; PCP Obstetrics & Gynecology; Referring Provider Obstetrics & Gynecology; Visit Provider Obstetrics & Gynecology
DX: O24.414 Gestational diabetes mellitus in pregnancy, insulin controlled (principal); Z3A.39 39 weeks gestation of pregnancy
CPT/HCPCS: 59025; G0378; G0379

== ENCOUNTER 2020-07-10 19:07 | Observation (INO) | payer OTHER, SELFPAY ==
[2020-07-10 20:36] LABS: Add Manual Diff / Slide Review NO; Basophils Absolute Auto 0 /uL (0-100); Basophils Percent Auto 0.4 % (0-2); Eosinophils Absolute Auto 100 /uL (0-450); Eosinophils Percent Auto 0.8 % (2-4); Hematocrit 36.8 % (36-46); Lymphocytes Absolute Auto 2700 /uL (1100-4500); Lymphocytes Percent Auto 25.4 % (25-40); Mean Corpuscular HGB Conc 35.4 % (30-36); Mean Corpuscular Hemoglobin 32.4 PG (26-34); Mean Corpuscular Volume 91.4 fL (80-100); Monocytes Absolute Auto 900 /uL (0-900); Monocytes Percent Auto 8.9 % (3-14); Neutrophils Absolute Auto 6900 /uL (1500-7000); Neutrophils Percent Auto 64.5 % (50-75); Platelet Count 206 X10^3/uL (150-400); Red Blood Cell Count 4.02 X10^6/uL (4.0-5.2); Red Cell Distribution Width 13.4 % (11.6-14.8); White Blood Cell Count 10.7 X10^3/uL (4.5-11.0)
[2020-07-10] MEDS: DINOPROSTONE VAG (CERVIDIL) 10 MG VAG (20:47)
[2020-07-10 20:55] LABS: Aspartate Aminotransferase 22 IU/L (14-36); Blood Urea Nitrogen 9 mg/dL (7-17); Estimated Glomerular Filt Rate > 60.0 mL/min (>60); Uric Acid 3.2 mg/dL (2.5-6.2)
[2020-07-10 21:33] VITALS: BP 125/64
[2020-07-10] MEDS: ZOLPIDEM 5 MG TABLET PO (23:55)
--- NOTE | 2020-07-11 08:05 | P.HPOB_ITS ---
OB HPI History of Present Condition Chief complaint: observation of labor Narrative: Vivian Jacobsen is a 29 year old female Evaluation Evaluation Laboratory results: Laboratory Tests 07/10/20 07/10/20 07/10/20 20:30 20:30 20:30 WBC 10.7 RBC 4.02 Hgb 13.0 Hct 36.8 MCV 91.4 MCH 32.4 MCHC 35.4 RDW 13.4 Plt Count 206 Neut % (Auto) 64.5 Lymph % (Auto) 25.4 Lyon % (Auto) 8.9 Eos % (Auto) 0.8 L Baso % (Auto) 0.4 Neut # (Auto) 6900 Lymph # (Auto) 2700 Lyon # (Auto) 900 Eos # (Auto) 100 Baso # (Auto) 0 BUN 9 Creatinine 0.53 Estimated GFR > 60.0 BUN/Creatinine Ratio 17.0 Uric Acid 3.2 AST 22 Blood Type O Positive Antibody Screen Negative [facility] Medical History Ankle fracture, left (Acute) Hx of being hospitalized (Acute ~2012) Scoliosis (Chronic) Surgical History History of third molar tooth extraction (~2011) Family History Mother Diabetes mellitus Myocardial infarction Altered renal tissue perfusion Hypertension Grandfather No problems noted. Grandmother Breast cancer in female Family/Other Breast cancer in female Father PTSD (post-traumatic stress disorder) History of renal dialysis Grandfather No problems noted. Grandmother Breast cancer in female Sister Depression PTSD (post-traumatic stress disorder) Social History marital status: household members: spouse and children (2) pets and animals: Yes (dogs X 2) education level: college ([employer]) occupational status: employed current occupational exposures/hazards: No special henrietta needs: No Smoking Status: Never smoker Meds Home Medications and Allergies Home Medications Medication Instructions Recorded Confirmed Type prenat.vits,chio,tso-qlqx-ulvmq 1 tab PO DAILY 11/20/19 07/10/20 History blood sugar diagnostic #120 each 05/07/20 Rx blood-glucose meter #1 each 07/07/20 Rx lancets #120 each 05/07/20 Rx Personal use Double Electric #1 each 05/21/20 Rx breast Pump and Supplies Adult Low Dose Aspirin 81 mg PO DAILY 06/10/20 06/10/20 History metformin 500 mg tablet 500 mg PO .HS #30 tab 06/14/20 07/10/20 Rx insulin NPH isoph U-100 human 100 2 unit SUBCUT .qHS #15 ml 06/17/20 07/10/20 Rx unit/mL (3 mL) subcutaneous pen pen needle, diabetic 30 gauge x #100 each 06/17/20 06/17/20 Rx 03/16 Allergies Allergy/AdvReac Type Severity Reaction Status Date / Time cephalexin [CEPHALEXIN] Allergy Intermediate FROM KEFLEX Verified 07/10/20 21:38 clindamycin [CLINDAMYCIN] Allergy Intermediate RENE-JOANNE Verified 07/10/20 21:38 SYNDROME levofloxacin [LEVOFLOXACIN] Allergy Intermediate RENE Verified 07/10/20 21:38 JOANNE-SYNDROME Objective Labs Result Diagrams: 07/10/20 20:30 07/10/20 20:30 Labs: Laboratory Results - last 24 hr 07/10/20 07/10/20 07/10/20 20:30 20:30 20:30 WBC 10.7 RBC 4.02 Hgb 13.0 Hct 36.8 MCV 91.4 MCH 32.4 MCHC 35.4 RDW 13.4 Plt Count 206 Neut % (Auto) 64.5 Lymph % (Auto) 25.4 Lyon % (Auto) 8.9 Eos % (Auto) 0.8 L Baso % (Auto) 0.4 Neut # (Auto) 6900 Lymph # (Auto) 2700 Lyon # (Auto) 900 Eos # (Auto) 100 Baso # (Auto) 0 BUN 9 Creatinine 0.53 Estimated GFR > 60.0 BUN/Creatinine Ratio 17.0 Uric Acid 3.2 AST 22 Blood Type O Positive Antibody Screen Negative
--- NOTE | 2020-07-11 17:18 | P.TNLD_ITS ---
Visit Information Visit Information Date of evaluation: 07/10/20 Primary OB Provider: Yocasta Sewell Reason for Evaluation: Yes other Comments/Additional reasons for admission: 29yo @39+2 with GDMA2, admitted with cervical ripening overnight with cervidil. Patient was planned for pitocin this AM, but the labor floor is such that as she has reassuring and maternal status, she was discharged for expectant management at home, to return for pitocin in the AM. Patient is tearful but understanding, reports painful contractions q4-5 since cervidil was removed, no VB, no LOF, +FM, no other complaints. [facility] Medical History Ankle fracture, left (Acute) Hx of being hospitalized (Acute ~2012) Scoliosis (Chronic) Surgical History History of third molar tooth extraction (~2011) Family History Mother Diabetes mellitus Myocardial infarction Altered renal tissue perfusion Hypertension Grandfather No problems noted. Grandmother Breast cancer in female Family/Other Breast cancer in female Father PTSD (post-traumatic stress disorder) History of renal dialysis Grandfather No problems noted. Grandmother Breast cancer in female Sister Depression PTSD (post-traumatic stress disorder) Social History marital status: household members: spouse and children (2) pets and animals: Yes (dogs X 2) education level: college ([employer]) occupational status: employed current occupational exposures/hazards: No special henrietta needs: No Smoking Status: Never smoker Review of Systems Constitutional Constitutional: Reports as per HPI Exam Vital Signs (past 8 hours): 123/83, HR 98, T 98.3 GI Palpation: soft and No tender Objective Labs Result Diagrams: 07/10/20 20:30 07/10/20 20:30 Labs: Laboratory Results - last 24 hr 07/10/20 07/10/20 07/10/20 20:30 20:30 20:30 WBC 10.7 RBC 4.02 Hgb 13.0 Hct 36.8 MCV 91.4 MCH 32.4 MCHC 35.4 RDW 13.4 Plt Count 206 Neut % (Auto) 64.5 Lymph % (Auto) 25.4 Beckham % (Auto) 8.9 Eos % (Auto) 0.8 L Baso % (Auto) 0.4 Neut # (Auto) 6900 Lymph # (Auto) 2700 Beckham # (Auto) 900 Eos # (Auto) 100 Baso # (Auto) 0 BUN 9 Creatinine 0.53 Estimated GFR > 60.0 BUN/Creatinine Ratio 17.0 Uric Acid 3.2 AST 22 Blood Type O Positive Antibody Screen Negative Evaluation Evaluation Baseline heart rate: 145 Variability: Moderate (11-25) monitor accelerations: Present monitor decelerations: Absent Cervical dilation (cm): 3 Cervical effacement (%): 75 station: -3 Laboratory results: Laboratory Tests 07/10/20 07/10/20 07/10/20 20:30 20:30 20:30 WBC 10.7 RBC 4.02 Hgb 13.0 Hct 36.8 MCV 91.4 MCH 32.4 MCHC 35.4 RDW 13.4 Plt Count 206 Neut % (Auto) 64.5 Lymph % (Auto) 25.4 Beckham % (Auto) 8.9 Eos % (Auto) 0.8 L Baso % (Auto) 0.4 Neut # (Auto) 6900 Lymph # (Auto) 2700 Beckham # (Auto) 900 Eos # (Auto) 100 Baso # (Auto) 0 BUN 9 Creatinine 0.53 Estimated GFR > 60.0 BUN/Creatinine Ratio 17.0 Uric Acid 3.2 AST 22 Blood Type O Positive Antibody Screen Negative Diagnosis, Plan/Disposition Plan/Disposition Plan: Home with plan for pitocin tomorrow AM. Antepartum precautions stressed. OB Disposition: home
== END 2020-07-11 08:50 | disposition home or self-care (01) ==
PROVIDERS: Admitting Provider Obstetrics & Gynecology; Family Provider Obstetrics & Gynecology; PCP Obstetrics & Gynecology; Referring Provider Obstetrics & Gynecology; Visit Provider Obstetrics & Gynecology
DX: O24.419 Gestational diabetes mellitus in pregnancy, unspecified control (principal); Z3A.39 39 weeks gestation of pregnancy
CPT/HCPCS: 59025; 59050; 59200; 84450; 84550; 85025; 86850; 86900; 86901; G0378; G0379

== ENCOUNTER 2020-07-12 07:26 | Inpatient (IN) | payer OTHER, SELFPAY ==
--- NOTE | 2020-07-12 08:16 | PM.OBHP.1 ---
OB HPI Date/Time Date of admission: 07/12/20 Date Patient Seen: 07/12/20 Time Patient Seen: 08:00 History of Present Condition Chief complaint: OBSERVATION OF LABOR : 3 Para: 2 Estimated Date of Delivery: 07/16/20 Estimated Gestational Age (weeks): 39 Narrative: Vivian Jacobsen is a 29 year old 002 at 39 weeks 3 days with GDM A2 on insulin and metformin, presenting for induction of labor. Patient was previously admitted on 07/10 in the 910 for cervical ripening, which she underwent successfully, but was otherwise stable and not laboring. Due to conditions on labor floor, she was discharged home prior to starting Pitocin and brought back this morning for Pitocin. She reports that she had contractions after discharge Q 3-4 that space significantly, denies loss of fluid or vaginal bleeding, reports good movement, and is otherwise feeling well with no headaches, visual changes, or other complaints. She has continued to take her metformin and insulin as scheduled. Her has been complicated by pre-existing chronic headaches and visual changes which is improved in recent weeks, status post multiple negative evaluations for PIH and HELLP syndrome. She has been in biweekly testing since 34 weeks, with good results. She has a history of 2 prior vaginal deliveries, 1 of which was complicated by elevated blood pressures around the time of delivery though no specific diagnosis. She has been on baby aspirin throughout the . She is proven to 9 lb. Indications Indication for induction OB: medical complication History of Present care: good care, initiated at week # (7), number of visits (18) and pounds weight gain (39) Dating criteria: LMP confirmed by 1st trimester US Ultrasounds: normal 1st trimester US and normal mid trimester US Obstetrical complications: gestational diabetes Medical complications: none Preadmission Labs -: GBS status: negative, HBsAG: negative, HIV: negative and RPR/VDLR: negative -: Rubella: immune and Varicella: not immune Integrated screen: Patient declined aneuploidy screening Prior (ies) History: G1: 04/13/13, 40 wks, , 8#7, F G2: 12/07/14, 39 weeks, 9# , M, PIH Evaluation Evaluation Baseline heart rate: 140 Variability: Moderate (11-25) monitor accelerations: Present monitor decelerations: Absent Category of Tracing: Reactive Cervical dilation (cm): 2 Cervical effacement (%): 75 station: -3 [facility] Medical History Ankle fracture, left (Acute) Hx of being hospitalized (Acute ~2012) Scoliosis (Chronic) Surgical History History of third molar tooth extraction (~2011) Family History Mother Diabetes mellitus Myocardial infarction Altered renal tissue perfusion Hypertension Grandfather No problems noted. Grandmother Breast cancer in female Family/Other Breast cancer in female Father PTSD (post-traumatic stress disorder) History of renal dialysis Grandfather No problems noted. Grandmother Breast cancer in female Sister Depression PTSD (post-traumatic stress disorder) Social History marital status: household members: spouse and children (2) pets and animals: Yes (dogs X 2) education level: college ([employer]) occupational status: employed current occupational exposures/hazards: No special henrietta needs: No Smoking Status: Never smoker Meds Home Medications and Allergies Home Medications Medication Instructions Recorded Confirmed Type prenat.vits,chio,nwq-fxjc-viddk 1 tab PO DAILY 11/20/19 07/10/20 History blood sugar diagnostic #120 each 05/07/20 Rx blood-glucose meter #1 each 05/07/20 Rx lancets #120 each 05/07/20 Rx Personal use Double Electric #1 each 05/21/20 Rx breast Pump and Supplies Adult Low Dose Aspirin 81 mg PO DAILY 06/10/20 06/10/20 History metformin 500 mg tablet 500 mg PO .HS #30 tab 06/14/20 07/10/20 Rx insulin NPH isoph U-100 human 100 2 unit SUBCUT .qHS #15 ml 06/17/20 07/10/20 Rx unit/mL (3 mL) subcutaneous pen pen needle, diabetic 30 gauge x #100 each 06/17/20 06/17/20 Rx 03/16 Allergies Allergy/AdvReac Type Severity Reaction Status Date / Time cephalexin [CEPHALEXIN] Allergy Intermediate FROM KEFLEX Verified 07/10/20 21:38 clindamycin [CLINDAMYCIN] Allergy Intermediate RENE-JOANNE Verified 07/10/20 21:38 SYNDROME levofloxacin [LEVOFLOXACIN] Allergy Intermediate RENE Verified 07/10/20 21:38 JOANNE-SYNDROME Review of Systems Constitutional Constitutional: Reports system reviewed and no additional complaints, except as documented Cardiovascular Cardiovascular: Reports system reviewed and no additional complaints, except as documented Respiratory Respiratory: Reports system reviewed and no additional complaints, except as documented Gastrointestinal Gastrointestinal: Reports system reviewed and no additional complaints, except as documented Genitourinary Genitourinary: Reports system reviewed and no additional complaints, except as documented Neurologic Neurologic: Reports system reviewed and no additional complaints, except as documented Exam Vital Signs (past 8 hours): 121/69, HR 89 Const General: cooperative, healthy appearing and well groomed Resp Effort & Inspection: normal respiratory effort Auscultation: clear to auscultation bilaterally Cardio Rate: regular rate Rhythm: regular rhythm GI Palpation: soft and No tender External Female Exam: normal external appearance Skin General: no rashes or lesions noted Extrem General: normal to inspection Objective Labs Result Diagrams: 07/12/20 08:30 Assessment and Plan Assessment and Plan Assessment and Plan narrative: This patient is admitted for induction of labor for poorly controlled GDMA2. She will be admitted for pitocin per the usual protocol. - cEFM, toco - FSGs q4 in latent labor, q1 in active labor - pitocin per protocol - repeat covid19 test required
[2020-07-12] MEDS: LACTATED RINGERS 1,000 ML 100 ML IV ×3 (08:40→14:41)
[2020-07-12 08:44] VITALS: BP 121/69
[2020-07-12] MEDS: OXYTOCIN PREMIX 30 UNIT/500 ML PLAST..BAG IV (08:49)
[2020-07-12 08:50] LABS: Add Manual Diff / Slide Review NO; Basophils Absolute Auto 100 /uL (0-100); Basophils Percent Auto 0.7 % (0-2); Eosinophils Absolute Auto 100 /uL (0-450); Eosinophils Percent Auto 0.8 % (2-4); Hematocrit 38.3 % (36-46); Hemoglobin 13.5 g/dL (12.0-16.0); Lymphocytes Absolute Auto 2200 /uL (1100-4500); Lymphocytes Percent Auto 24.1 % (25-40); Mean Corpuscular HGB Conc 35.2 % (30-36); Mean Corpuscular Hemoglobin 32.2 PG (26-34); Mean Corpuscular Volume 91.3 fL (80-100); Monocytes Absolute Auto 800 /uL (0-900); Monocytes Percent Auto 8.9 % (3-14); Neutrophils Absolute Auto 6100 /uL (1500-7000); Neutrophils Percent Auto 65.5 % (50-75); Platelet Count 204 X10^3/uL (150-400); Red Blood Cell Count 4.19 X10^6/uL (4.0-5.2); Red Cell Distribution Width 13.3 % (11.6-14.8); White Blood Cell Count 9.3 X10^3/uL (4.5-11.0)
[2020-07-12 09:33] LABS: COVID19 -Nasal RAPID Negative (Negative)
--- NOTE | 2020-07-12 12:35 | P.PNOB_ITS ---
Date/Time Date Patient Seen: 07/12/20 Time Patient Seen: 12:36 Pain Control Pain control: tolerating well Pelvic Exam Dilation (cm): 3 Effacement (%): 75 station: -1 Amniotic membrane status: Ruptured (clear fluids) Contractions Pitocin rate (mU/min): 12 Contraction frequency (min): 2 Contraction pattern: Regular Contraction intensity: Moderate Status status: Category l Heart Rate Baseline: 145 Monitor Accelerations: Present Monitor Decelerations: Absent Comments: periods of minimal variability, +scalp stim, periods of moderate variability with accels Assessment and Plan Assessment: induction ongoing Plan: continuous present management Comments: Patient with uterine tachysystole and turning down pitocin, but cont inue present management. Epidural on request.
--- NOTE | 2020-07-12 16:14 | PM.AN.REGBLK ---
Regional Block Pre-procedure Procedure: Continuous Lumbar Epidural for L&D Attending OB provider: Yocasta Sewell PMH/LOLA narrative: term labor, GDM on insulin and metformin, well controlled. No other complications. Hx: No personal or family history of anesthesia problems. ASA Class: II Labs: Hct 38.3 % (36-46) 07/12/20 08:30 Plt Count 204 X10^3/uL (150-400) 07/12/20 08:30 Medications: Current Medications Generic Name Dose Route Start Last Admin Trade Name Freq PRN Reason Stop Dose Admin Lactated Ringer's 1,000 mls @ 100 mls/hr 07/12/20 08:45 07/12/20 14:41 Lactated Ringers IV 100 mls/hr CONT CORRINE Administration Lactated Ringer's 1,000 mls @ 125 mls/hr 07/12/20 08:45 Lactated Ringers IV CONT CORRINE Oxytocin/Lactated Ringer's 30 unit in 500 mls @ 3 mls/hr 07/12/20 08:45 07/12/20 08:49 Oxytocin Premix IV 3 milliunit/min TITRATE CORRINE 3 mls/hr Administration Protocol 3 MILLIUNIT/MIN FENT 2MCG/ML BUPIV 0.125% EPI 200 mcg in 100 mls @ 6 mls/hr 07/12/20 13:45 Fentanyl/Bupiv/Ns 2mcg/Ml - 0.125% EPIDURAL CONT CORRINE Metoclopramide HCl 10 mg 07/12/20 08:44 Reglan IV NOW PRN Nausea And Vomiting Allergies: Allergies Allergy/AdvReac Type Severity Reaction Status Date / Time cephalexin [CEPHALEXIN] Allergy Intermediate FROM KEFLEX Verified 07/10/20 21:38 clindamycin [CLINDAMYCIN] Allergy Intermediate RENE-JOANNE Verified 07/10/20 21:38 SYNDROME levofloxacin [LEVOFLOXACIN] Allergy Intermediate RENE Verified 07/10/20 21:38 JOANNE-SYNDROME Procedure Insertion date: 07/12/20 Insertion time: 14:17 Prep/Local: betadine x3 Interspace: L2-3 Patient position: sitting Needle: 18 gauge Yvan (CSE: 27g Pencan) Loss of resistance with: saline WANG at (cm): 4 Catheter placed at SKIN (cm): 9 Catheter in SPACE (cm): 5 Insertion: No Blood, No Paresthesia with insertion, No Paresthesia with injection and No Test dose reaction Initial Medications TEST DOSE time: 14:10 TEST DOSE: 1.5% lidocaine with epinephrine 1:200k (mL): 3 BOLUS DOSE time: 14:10 BOLUS DOSE (mL): 3 BOLUS DOSE med: other (infusate) Infusion INFUSION: 0.125% bupivacaine and with fentanyl 2 mcg/mL Initial rate (mL/hr): 6 Subsequent interventions: , no complications Post-procedure Anesthesia time START: 14:07 Anesthesia time END: 20:04 Post-procedure Anesthesia Assessment: Yes CV function: HR/BP stable, Yes Resp function: RR/sat/airway adequate, Yes Post-op hydration adequate, Yes Pain control adequate, Yes Nausea & vomiting absent, Yes Mental status appropriate and No Anesthesia complications
--- NOTE | 2020-07-12 16:55 | PM.OBPNLAB ---
Date/Time Date Patient Seen: 07/12/20 Time Patient Seen: 16:55 Pain Control Pain control: epidural Pelvic Exam Dilation (cm): 4 Effacement (%): 75 station: -1 Amniotic membrane status: Ruptured (clear fluids) Comments: cervix significantly more anterior Contractions Pitocin rate (mU/min): 8 Contraction frequency (min): 4 Contraction pattern: Regular Contraction intensity: Moderate Status status: Category l Heart Rate Baseline: 145 Monitor Accelerations: Present Monitor Decelerations: Absent Monitor Variability: Moderate Assessment and Plan Assessment: induction ongoing Plan: continuous present management
--- NOTE | 2020-07-12 20:17 | PM.OBPRVD ---
Events: Gestational Diabetes and Labor Induction Labor & Delivery Delivery date: 07/12/20 Intrapartal events: Acceleration and Deceleration Cervical ripening method: per Cervidil protocol Induction method: per pitocin protocol Delivery augmentation: rupture of membranes Delivery monitor: external FHT Route of delivery: L&D Laceration Description: None Estimated blood loss (mL): 100 Anesthesia type: Epidural Complications: None Narrative: This patient is a 29yo now P3 with GDMA2 who presented for induction of labor. After cervical ripening, she was sent home due to stability and conditions on the labor floor making induction with pitocin unsafe, and returned the next AM. She was induced with pitocin and augmented with AROM for clear fluid, and progressed spontaneously to fully dilated. After a short pushing stage, she was delivered of a healthy baby girl, apgars 8+9, weight 7#8, with a loose nuchal cord reduced at the perineum. The shoulders delivered with ease, and there were no perineal or other lacerations. The cord was clamped and cut after delayed cord clamping, and the placenta delivered spontaneously and intact shortly thereafter. There were no other intrapartum or immediate complications. Baby Dee: gender: Female Presentation: vertex position: Right Occiput Anterior (Direct OA) Placenta delivery description: Spontaneous cord vessel description: 3 Vessels (loose nuchal x1) score (1 min): 8 score (5 min): 9 Plan for aftercare: Routine care.
[2020-07-13] MEDS: IBUPROFEN 600 MG TABLET PO ×3 (00:48→15:07)
[2020-07-13] MEDS: ACETAMINOPHEN 325 MG TABLET 650 MG PO (06:03)
--- NOTE | 2020-07-13 09:33 | P.DS_ITS ---
Discharge Providers Provider Date of admission: 07/12/20 07:26 Discharge Date: 07/13/20 Primary care physician: Yocasta Sewell MD Consults: 07/13/20 20:15 Consult to Workplace Rehabilitation Officer Routine Comment: Discharge provider: Yocasta Sewell MD Summary Hospital Course Date Patient Seen: 07/13/20 Time Patient Seen: 09:33 Procedures: Hospital Course: This patient was readmitted for induction with pitocin for GDMA2, after being admitted for cervical ripening then discharged due to conditions on the labor floor. She progressed to fully dilated after AROM, and after a short pushing stage, was delivered of a healthy baby girl without complication and with no perineal or other laceration. She was meeting pospartum goals appropriately, and was discharged on PPD#1 with routine follow up and precautions. Peripartum Data Infant Delivery Method: Natural Vaginal Laceration Description: None Procedures: spontaneous vaginal delivery complications: none Dee: Gender: Female Disposition of : home Status at Discharge Cognitive/behavioral status at discharge: oriented Functional status at discharge: independent ambulation Overall status at discharge: patient is progressing back to baseline Time Spent with Patient Time attestation: Total time spent providing and/or coordinating discharge services: Objective Labs Result Diagrams: 07/12/20 08:30 Labs: Laboratory Results - last 24 hr 07/12/20 07/12/20 08:30 09:32 COVID-19 PCR Negative Blood Type O Positive Antibody Screen Negative Exam Vital Signs (past 8 hours): 113/69, HR 82 Const General: cooperative, healthy appearing, comfortable and well groomed Other: nursing baby Resp Effort & Inspection: normal respiratory effort Auscultation: clear to auscultation bilaterally Cardio Rate: regular rate Rhythm: regular rhythm GI Palpation: soft and No tender Other: fundus firm, well below u Skin General: no rashes or lesions noted Extrem General: normal to inspection Discharge Plan Discharge Plan Patient Disposition: Home Discharge orders & Medications Prescriptions: Continued (DME) Personal use Double Electric breast Pump and Supplies See Rx Instructions .ROUTE .MEDSUPPLY Qty: 1 RF: 0 Discontinued (DME) blood-glucose meter [Blood Glucose Monitoring] Kit See Rx Instructions .ROUTE .MEDSUPPLY Qty: 1 RF: 0 (DME) lancets Misc See Rx Instructions .ROUTE .MEDSUPPLY Qty: 120 RF: 3 (DME) blood sugar diagnostic [Blood Glucose Test] Strip See Rx Instructions .ROUTE .MEDSUPPLY Qty: 120 RF: 3 metformin 500 mg tablet 500 mg PO .HS Qty: 30 RF: 1 prenat.vits,chio,dxw-puzb-hfknl Tablet 1 tab PO DAILY RF: 0 Humulin N NPH Insulin KwikPen 100 unit/mL (3 mL) insulin pen 2 unit SUBCUT .qHS Qty: 15 RF: 0 (DME) pen needle, diabetic [Pen Needle] 30 gauge x 5/16 needle See Rx Instructions .ROUTE .MEDSUPPLY Qty: 100 RF: 0 Adult Low Dose Aspirin 81 mg 81 mg PO DAILY RF: 0 Follow up/Referrals: Yocasta Sewell MD [Primary Care Provider] - 6 Weeks (To call [phone] on Sunday 07/15 to make an appointment to see DrFesahra in 6 weeks) Diet/Activity/Treatments Diet: Regular Activity: Nothing in the vagina for 6 weeks. Avoid heavy lifting for 6 weeks. If you have increasing bleeding, discharge, fevers, chills, headaches, visual changes, trouble breathing, or any other symptoms or concerns, call the office or come to the emergency room. Skin/Wound/Dressing Care Report to your healthcare provider any signs of infection, such as:: chills, fever, night sweats, increased pain, unusual drainage and unusual redness Visit Report/Discharge Packet Instructions: DI for Labor and Delivery, Vaginal Stand Alone Forms: Discharge: Care Visit Report Forms: Patient Portal/API, Stroke Signs & Symptoms Discharge Data Primary Care Provider: Yocasta Sewell Discharges patient from system. Discharge Date/Time: 07/13/20 19:30
[2020-07-13 18:33] VITALS: BP 121/69; PULSE 80; RESP 18; TEMP 36.7
== END 2020-07-13 19:30 | disposition home or self-care (01) | DRG 807 ==
PROVIDERS: Admitting Provider Obstetrics & Gynecology; Family Provider Obstetrics & Gynecology; PCP Obstetrics & Gynecology; Referring Provider Obstetrics & Gynecology; Visit Provider Obstetrics & Gynecology
DX: O24.424 Gestational diabetes mellitus in childbirth, insulin controlled (principal); Z37.0 Single live birth; Z3A.39 39 weeks gestation of pregnancy; O69.81X0 Labor and delivery complicated by cord around neck, without compression, not applicable or unspecified; Z11.59 Encounter for screening for other viral diseases
CPT/HCPCS: 01967; 59050; 59400; 85025; 86850; 86900; 86901; 87635; G0379; J2590

== ENCOUNTER → 2023-08-26 08:20 | Outpatient (CLI) | payer OTHER, SELFPAY ==
[2023-08-26 10:16] LABS: Glucose 102 mg/dL (70-100)
[2023-08-26 10:34] LABS: Free T4, Direct Thyroxine 1.08 ng/dL (0.78-2.19)
[2023-08-26 10:38] LABS: Follicle Stimulating Hormone 6.67 mIU/mL; Luteinizing Hormone 2.56 mIU/mL
[2023-08-26 10:48] LABS: Thyroid Stimulating Hormone 1.53 uIU/mL (0.47-4.68)
[2023-08-27 09:57] LABS: Insulin Level Total 17.4 uIU/mL (2.6-24.9)
== END ==
PROVIDERS: Family Provider Obstetrics & Gynecology; PCP Internal Medicine; Referring Provider Obstetrics & Gynecology; Visit Provider Obstetrics & Gynecology
DX: N92.6 Irregular menstruation, unspecified (principal); E28.2 Polycystic ovarian syndrome
CPT/HCPCS: 36415; 82947; 83001; 83002; 83525; 84439; 84443